=== PATIENT | female | born 1940 | race Caucasian/White ===

== ENCOUNTER → 2017-04-06 | Day surgery (SDC) | payer MEDICARE, OTHER ==
[~2017-04-06] VITALS: Ht 168.9 cm; Wt 99.8 kg
[~2017-04-06] MED LIST: ASCO500C6 PO; CALC1CAP22 PO; CIPR-232 PO; CRAN500C8 PO; GLUC-91 PO; HYDR-4003 PO; HYDR25TA4 PO; HYG25 PO; LATANOPROST; LEVO100T6 PO; LEVO200T6 PO; LEVO300T5 PO; LOSA100T29 PO; SULF1TAB35 PO; Sodium Chloride LOK Flush 10 mL Syringe IV PRN; TAMS0.4C98 PO; TERA1CAP3 PO; VENL75CA PO; WARF5TAB7 PO; WARF5TAB9 PO; fentaNYL-PF 50 mCg/mL 2 mL Inj IVPUSH PRN
[2017-04-06 10:30] VITALS: BP 156/74; PULSE 79; RESP 14; O2SAT 99
[2017-04-06] MEDS: 0.9% Sodium Chloride 1,000 ML IV SCH ×2 (11:24→11:32)
[2017-04-06 11:43] VITALS: BP 145/82; PULSE 67; RESP 15; O2SAT 100
[2017-04-06 11:53] VITALS: BP 154/79; PULSE 70; RESP 16; O2SAT 100
[2017-04-06 12:03] VITALS: BP 166/85; PULSE 69; RESP 16; O2SAT 99
--- NOTE | 2017-04-06 13:10 | ENDO ---
[address] [address] ENDOSCOPY PROCEDURE PATIENT: SMITH JAVED : 1940 MR#: [id number] ADMIT: 04/06/2017 JOB ID: [id number] DATE: 04/06/2017 PRIMARY PROVIDER: Nhung Rehman PA-C PROCEDURE: Colonoscopy. INDICATIONS: A 76-year-old female with a personal history of colon polyp returning for surveillance. EQUIPMENT: PCF H 180 AL. SEDATION: Versed 2, mg, 50 mcg fentanyl. COMPLICATIONS: None identified. BOWEL PREPARATION: Suboptimal. PROCEDURE INFORMATION: After the risks and benefits were explained, written and verbal informed consent was obtained. The patient was brought into the endoscopy suite and placed into the left lateral decubitus position. Sedation was achieved as above. Digital rectal examination accomplished. No significant pathology apart from some mild internal hemorrhoids noted. The scope was introduced into the rectum and advanced under direct visualization to the level of the cecum, as identified by the appendiceal orifice and ileocecal valve. The scope was slowly withdrawn to carefully examine the mucosa for any defects or lesions. Multiple direct views were made through the dentate line for exclusion of pathology. The colon was decompressed and the scope removed from the patient, who tolerated the procedure well. FINDINGS: No significant polyps, mass lesions, or inflammatory features identified throughout; however, prep was quite suboptimal with a moderate amount of retained solid stool debris and fibrous debris rendering some of the mucosa impossible to fully visualize. Within the limitations of the bowel prep, I did not see any overt pathology. The patient had rather extensive diverticulosis throughout the sigmoid. ENDOSCOPIC DIAGNOSES: 1. Diverticulosis. 2. Hemorrhoids. 3. Suboptimal bowel prep. RECOMMENDATIONS: 1. Continue anticonstipation regimen especially in the context of regular pain medication. 2. I would recommend a repeat full colonoscopy with an extra day of bowel prep within the next 1-2 years considering the past history of adenomatous colon polyp.
== END | disposition home or self-care (01) ==
LOC: END 02:16
PROVIDERS: ATTEND Internal Medicine Gastroenterology
DX: Z12.11 Encounter for screening for malignant neoplasm of colon (principal); Z86.010 Personal history of colon polyps; K57.30 Diverticulosis of large intestine without perforation or abscess without bleeding; K64.8 Other hemorrhoids; Z79.891 Long term (current) use of opiate analgesic; M16.0 Bilateral primary osteoarthritis of hip; I10 Essential (primary) hypertension
CPT/HCPCS: 99153; G0105; G0500; J2250; J3010; J7030